=== PATIENT | female | born 1985 | race Caucasian/White ===

== ENCOUNTER 2019-02-06 19:35 | Emergency (ER) | payer MEDICAID, OTHER ==
[~2019-02-06] VITALS: Wt 54.0 kg
[2019-02-06] MEDS ORDERED: BEN50 PO (21:45)
[2019-02-06] MEDS ORDERED: MUPI22OI2 TOP (21:45)
[2019-02-06] MEDS ORDERED: PRED20TA PO (21:45)
--- NOTE | 2019-02-06 21:51 | ERD ---
ER Documentation Chief Complaint Chief Complaint ALLERGIC REACTION, WELTS ON CHIN, CHEST; EYES FEEL SWOLLEN X'S 1 DAY HPI 33-year-old female presents with complaint of which she thinks is an allergic reaction as well as welts on her chin. States that it started today. She does not have any history of allergies does not know what could have caused this. She denies rashes anywhere else but does state that her eyelids are little bit swollen. States that she took Benadryl earlier today. At 9 AM. Denies wheezing, respiratory distress, stridor, dizziness, vomiting, diarrhea. Denies allergies. Denies medical problems. ROS All systems reviewed and are negative except as per history of present illness. Medications Home Meds Active Scripts Mupirocin* (Bactroban*) 2% -22 Gram Oint...g., 1 APPLIC TOP TID for impetigo for 7 Days, EA Prov:LUIS FUNK 02/06/19 Prednisone* (Prednisone*) 20 Mg Tab, 40 MG PO DAILY for 5 Days, TAB Prov:LUIS FUNK 02/06/19 Diphenhydramine Hcl* (Benadryl*) 50 Mg Cap, 50 MG PO Q6H PRN for ITCHING/RASH, #30 CAP Prov:LUIS FUNK 02/06/19 Allergies Allergies: Coded Allergies: No Known Allergy (Unverified , 02/06/19) PMhx/Soc Medical and Surgical Hx: pt denies Medical Hx, pt denies Surgical Hx History of Surgery: No Hx Neurological Disorder: No Hx Respiratory Disorders: No Hx Cardiac Disorders: No Hx Psychiatric Problems: No Hx Miscellaneous Medical Probl: No Hx Alcohol Use: No Hx Substance Use: No Hx Tobacco Use: No Smoking Status: Never smoker FmHx Family History: No diabetes, No coronary disease, No other Physical Exam Vitals Vital Signs Date Temp Pulse Resp B/P (MAP) Pulse Ox O2 O2 Flow FiO2 Time Delivery Rate 02/06/19 98.5 87 18 121/64 99 19:43 (83) Physical Exam Const: No acute distress Head: Atraumatic Eyes: Normal Conjunctiva ENT: Normal External Ears, Nose and Mouth. Airway is patent and clear. T here is no stridor. There is no angioedema. Tongue is nonedematous. Neck: Full range of motion. No meningismus. Resp: Clear to auscultation bilaterally Cardio: Regular rate and rhythm, no murmurs Abd: Soft, non tender, non distended. Normal bowel sounds Skin: Yellow crust noted on the perioral area consistent with impetigo. No rash anywhere else on the body. Back: No midline or flank tenderness Ext: No cyanosis, or edema Neur: Awake and alert Psych: Normal Mood and Affect Results 24 hrs Current Medications Medications Dose Sig/Cele Start Time Status Last (Trade) Ordered Route PRN Stop Time Admin Dose Reason Admin Famotidine 40 mg ONCE ONCE 02/06/19 (Pepcid) PO 22:00 02/06/19 22:01 50 mg ONCE ONCE 02/06/19 Diphenhydrami IM 22:00 02/06/19 ne HCl 22:01 (Benadryl) Prednisone 60 mg ONCE ONCE 02/06/19 (Prednisone) PO 22:00 02/06/19 22:01 Mupirocin 1 applic ONCE ONCE 02/06/19 (Bactroban) TOP 22:00 02/06/19 22:01 Procedures/MDM MDM: Patient given Pepcid, prednisone, and Benadryl in the ER. Regarding the rash on the face the presentation consistent with impetigo. Mupirocin was placed on rash in the ER patient was given Rx for same. I will suspicion for anaphylaxis, respiratory distress, or any other emergent condition. Patient discharged with strict ER precautions. Patient advised to follow up with PMD. All questions answered at discharge. Departure Diagnosis: Primary Impression: Impetigo Additional Impression: Allergic reaction Encounter type: initial encounter Qualified Codes: T78.40XA - Allergy, unspecified, initial encounter Condition: Stable Patient Instructions: First Aid: Allergic Reactions, Impetigo, Mupirocin Topical ointment Additional Instructions: FOLLOW UP WITH YOUR PRIMARY CARE PHYSICIAN TOMORROW.Return to this facility if you are not improving as expected. LUIS FUNK February 06, 2019 21:51
[2019-02-06] MEDS ORDERED: FAMOTIDINE 20 MG TAB PO ONE (22:00)
[2019-02-06] MEDS ORDERED: DIPHENHYDRAMINE 50 MG INJ IM ONE (22:00)
[2019-02-06] MEDS ORDERED: predniSONE 20 MG TAB PO ONE (22:00)
[2019-02-06] MEDS ORDERED: MUPIROCIN 2% 22 GM OINT TOP ONE (22:00)
[2019-02-06 22:18] VITALS: BP 118/77; PULSE 75; RESP 18
== END 2019-02-06 22:25 | disposition home or self-care (01) ==
LOC: FTE 19:35
DX: L01.00 Impetigo, unspecified (principal)
CPT/HCPCS: 96372; J1200; J7512; Z7502; Z7610